=== PATIENT | female | born 1970 | race Caucasian/White ===

== ENCOUNTER 2017-02-28 21:48 | Emergency (ER) | payer SELFPAY ==
[~2017-02-28] VITALS: Ht 175.3 cm; Wt 82.0 kg
[2017-02-28 22:29] VITALS: BP 126/64
[2017-02-28] MEDS ORDERED: MORPHINE SULFATE 4 MG/ML CPJ (NOT FOR IM USE) IV STA (23:30)
[2017-02-28] MEDS ORDERED: ONDANSETRON HCL 4MG/2ML VIAL IV STA (23:30)
== END 2017-02-28 23:29 | disposition left against medical advice (07) ==
LOC: ER 21:50
DX: M79.605 Pain in left leg (principal)
CPT/HCPCS: 99281; Z7610